=== PATIENT | female | born 1980 | race Caucasian/White ===

== ENCOUNTER 2022-01-23 10:32 | Outpatient (CLI) | payer OTHER, SELFPAY ==
[2022-01-23 11:55] LABS: Thyroid Stimulating Hormone 0.906 uIU/mL (0.465-4.680)
[2022-02-21 15:09] LABS: Gliadin AB, IgG <1.0 U/mL (<15.0); Reticulin IgA Negative (Negative); TTG IGA AB <1.0 U/mL (<15.0)
== END 2022-01-23 10:33 | disposition home or self-care (01) ==
LOC: ANHLAB 10:36
PROVIDERS: PCP Nurse Practitioner; Visit Provider Nurse Practitioner Family
DX: R19.7 Diarrhea, unspecified (principal)
CPT/HCPCS: 36415; 83516; 84443; 86255

== ENCOUNTER 2022-01-24 13:22 | Outpatient (CLI) | payer OTHER, SELFPAY ==
[2022-01-24 17:33] LABS: Toxigenic C. Diff NEGATIVE (NEGATIVE)
[2022-02-02 12:10] LABS: Calprotectin, Stool 6 mcg/g
== END 2022-01-24 13:23 | disposition home or self-care (01) ==
LOC: ANHLAB 13:24
PROVIDERS: PCP Nurse Practitioner; Visit Provider Nurse Practitioner Family
DX: R19.7 Diarrhea, unspecified (principal)
CPT/HCPCS: 83993; 87045; 87177; 87209; 87427; 87493

== ENCOUNTER 2022-02-16 07:04 | Emergency (ER) | payer OTHER, SELFPAY ==
--- NOTE | ~2022-02-16 | XR_ITS ---
EXAMINATION: XR ankle LT min 3V DATE: 02/16/2022 07:54 INDICATION: Left ankle deformity post fall TECHNIQUE: Anteroposterior, mortise and lateral views of the left ankle were obtained. COMPARISON: None. FINDINGS: Fiberglas splinting material about the left ankle. Transverse fracture across the medial malleolus wi th 5 mm lateral displacement and minimal lateral angulation. Oblique fracture of the lateral malleolu s with medial fracture plane exiting at the level of the tibiotalar joint line for degree of lateral displacement and mild angulation. 6 mm posterior and cephalad displacement of a coronally oriented fr acture extending across the posterior malleolus involving a minimal portion of the articular surface of the tibial plafond. The talar dome posteriorly and laterally subluxed along with the 3 malleolar f ragments relative to the tibial plafond with widening of the anterior and lateral aspects of the lindsey lla joint space. Normal alignment and no fractures in the visualized left foot. Bone islands in the d istal tibia. IMPRESSION: 1. Trimalleolar fracture of the left ankle with residual mild lateral and posterior displacement and angulation post splinting. Reviewed, dictated and finalized at location A. IMPRESSION: 1. Trimalleolar fracture of the left ankle with residual mild lateral and poste rior displacement and angulation post splinting.
[2022-02-16] MEDS: KETOROLAC 30 MG/ML VIAL (*BKC) IV PUSH (07:14)
[2022-02-16] MEDS: MORPHINE SULFATE (*CRX) 4 MG/ML INJ IV PUSH (07:15)
--- NOTE | 2022-02-16 07:19 | ED.LOWEXIN ---
HPI - Extremity Injury (Lower) General Chief Complaint: Extremity Injury, Lower Stated Complaint: Fall, left ankle injury Time Seen by Provider: 02/16/22 07:09 History of Present Illness HPI Narrative: 41-year-old female presents emergency room with an obvious deformity of the left ankle. She had to point out some stairs this morning when she tripped and missed the last step. Has no other injury other than to the left ankle. Is obviously fractured and rotated. Patient is got significant pain associated with this. She does have a history of a prior fracture to her right ankle when she was a teenager. She did not hit her head and had no loss of consciousness. Related Data Home Medications Medication Instructions Recorded Confirmed escitalopram oxalate 20 mg tablet 20 mg PO DAILY 01/09/22 01/23/22 lactobacillus combination no.4 3 3,000 mmu cells PO DAILY 01/09/22 01/23/22 billion cell capsule (Probiotic) Allergies Allergy/AdvReac Type Severity Reaction Status Date / Time No Known Allergies Allergy Verified 01/23/22 09:14 Review of Systems Review of Systems: CONSTITUTIONAL: Denies fever, chills, or sweats. EYES: Denies visual changes, redness, or discharge. ENT: Denies rhinorrhea, congestion, sore throat, or otalgia. CARDIOVASCULAR: Denies chest pain, palpitations, or edema. RESPIRATORY: Denies cough or dyspnea. GASTROINTESTINAL: Denies abdominal pain, nausea, vomiting, or diarrhea. GENITOURINARY: Denies dysuria or hematuria. SKIN: Denies rash or itching. MUSCULOSKELETAL: Obvious deformity to the left ankle with associated pain NEUROLOGIC: Denies headache, numbness, or weakness. PSYCHIATRIC: Denies anxiety or depression. [facility] Past Medical History Medical History Diarrhea Tobacco use Family History Family History Mother Hypertension Depression Father Hypertension Social History Social History Smoking packs per day: 1 Smoking cigarettes per day: 20.0 Years smoked: 25 Smoking pack-years: 25.00 Smoking status: Current every day smoker Tobacco type: cigarettes Second hand tobacco smoke exposure: No Alcohol intake: current Drinks per week: 14 Substance use: current Substance use type: marijuana Gender identity (if verbalized by the patient): Female Spiritual care concerns: No Agree to blood products: Yes Exam Narrative: APPEARANCE: Well appearing, no pain or distress, well-nourished. Head normocephalic and atraumatic. EYES: PERRLA/EOMI, conjunctivae very clear. NOSE: Normal with no drainage EARS:TMS clear Conchita Samuel, with good light reflex. THROAT: Pharynx clear, no exudate. NECK: Supple. No adenopathy, no masses. RESPIRATORY: Airway patent, respirations nonlabored. Clear to auscultation bilaterally, no rales, rhonchi, wheezing. CARDIOVASCULAR: Regular rate and rhythm without murmurs, rubs, or gallops. ABDOMINAL: Soft, nontender, nondistended, no hepatosplenomegaly Musculoskeletal: Obviously deformity to the left ankle. He is noted to be externally rotated. She is able to move her toes. Good capillary fill all the way down to the ends of all of her digits. Sensation is intact. NEURO: Alert. Cranial nerves II through XII intact. Normal gait. Good coordination. Nonfocal examination. SKIN:: Warm, dry. Normal Color PSYCHIATRIC: Normal affect/mood, normal interaction Procedures Orthopedic Fracture Reduction Fracture #1: Additional Comments: Patient has an obvious fracture dislocation of left ankle. The left foot is noted to be pointed laterally. Patient has good distal pulses. Able to move all of her digits. Capillary refill is brisk. Patient was given morphine and Toradol IV. Able to put traction on the ankle and reduce the fracture and dislocation with no difficulty. I maintain traction and held the foot in place while a splint was applied. Patient to
[2022-02-16] MEDS: MORPHINE SULFATE (*CRX) 2 MG/ML INJ (07:27)
[2022-02-16 09:16] VITALS: BP 129/71; PULSE 64; RESP 18; O2SAT 100
== END 2022-02-16 09:00 | disposition home or self-care (01) ==
PROVIDERS: Emergency Provider Emergency Medicine; PCP Family Medicine Adolescent Medicine
DX: S82.852A Displaced trimalleolar fracture of left lower leg, initial encounter for closed fracture (principal); F17.210 Nicotine dependence, cigarettes, uncomplicated; W10.9XXA Fall (on) (from) unspecified stairs and steps, initial encounter
CPT/HCPCS: 27818; 73610; 96374; 96375; 99285; J1885; J2270

== ENCOUNTER 2022-02-21 01:04 | Day surgery (SDC) | payer OTHER, SELFPAY ==
[2022-02-18 17:03] VITALS: BMI 29.2
--- NOTE | 2022-02-18 17:28 | SUR.PREOP ---
Report to the Outpatient Waiting Room, entrance under the green pavilion located off [facility], at time 1030 on date 02/21/2022. OR Time: 1230. - You and your visitor will be asked a series of questions to screen for COVID 19 for your protection. - Only one visitor is allowed at this time. - The patient visitor is requested to leave or wait in car when not with patient. - A mask is required within the hospital. Patients may have clear liquids (water, carbonated beverages, clear teas, apple juice) until 3 hours (0930) prior to surgery with a maximum of 20 ounces. - No food from midnight until time of surgery - Infants may have breast milk until 4 hours before surgery, infant formula 6 hours prior to surgery. - Children will be allowed to drink immediately following surgery. If applicable, please bring a bottle or sippy cup to assist with drinking. Juice, water, soda, and popsicles are readily available. For infants on formula, please bring formula the day of surgery. Pacifiers are allowed. Take the following medications with a SIP of water the morning of surgery: [place], Lexapro Medications to discontinue per physician NSAID's- Ibuprofen/Aleve Date to take last dose 02/18/2022 Please no make-up, nail french, hairspray, perfume, deodorant, or body powder the day of surgery. No jewelry (including any body piercings) or valuables the day of surgery, leave them at home. Please take a shower or bath the night before, or the morning of, surgery with an antibacterial soap. Wear comfortable, loose fitting clothing. Children are encouraged to wear pajamas. - Jewelry must be removed prior to entering the operating room. Rings and piercings that are not removed may be cut off. - The hospital will not accept responsibility for valuables. - Please leave all valuables, including medications, at home the day of surgery. If you are going home after surgery, a licensed minibus driver must drive you home. - NO public transportation without another adult. - We recommend that an adult stay with you for 24 hours following discharge. - We also recommend that you do not drive, make important decision, drink alcoholic beverages, or take any drugs that were not prescribed by your health care provider for at least 24 hours after your discharge time. For Pediatric surgeries, we recommend two adults accompany the child home (only one inside the building at this time). Follow any additional instructions given to you from your surgeon. If you or anyone in your household have experienced Covid symptoms in the past week, please notify your surgeon or the nurse liaison at the phone number below for possible testing. Telephone instructions given to ____patient and asked if any additional questions and then verbalized understanding. Patient advised to call surgeon office or pre surgery nurse liaison [phone] if any additional questions.
--- NOTE | 2022-02-20 16:04 | P.PNAN_ITS ---
Anes - Initial Pre Proc Eval Procedure: Operation Date: 02/21/22 12:30 Proposed Procedures p Open Reduction Internal Fixation Left Trimalleolar Ankle Fracture - Todd Mc MD Date/Time: 02/20/22 16:04 Surgeon: Todd Mc MD Pre Op Diagnosis: left trimalleolar ankle fracture Patient Data Age: 41 Gender: F Height: 1.83 m Weight: 98 kg Allergies Allergy/AdvReac Type Severity Reaction Status Date / Time No Known Allergies Allergy Verified 02/21/22 10:56 Home Medications Medication Instructions Recorded Confirmed Type dicyclomine 10 mg capsule 10 mg PO TID #90 caps 01/09/22 02/18/22 Rx escitalopram oxalate 20 mg tablet 20 mg PO DAILY 01/09/22 02/21/22 History lactobacillus combination no.4 3 3,000 mmu cells PO DAILY 01/09/22 02/18/22 History billion cell capsule (Probiotic) hydrocodone 5 mg-acetaminophen 300 1 tablet PO Q8H PRN pain #20 tabs 02/16/22 02/21/22 Rx mg tablet Patient hx anesthesia problems: none Family hx anesthesia problems: none Results Review: All pre-operative results and documents have been reviewed as part of the pre- operative evaluation. [facility] Past Medical History Medical History Anxiety Depression Diarrhea Tobacco use Family History Family History Mother Hypertension Depression Father Hypertension Social History Social History Smoking packs per day: 1 Smoking cigarettes per day: 20.0 Years smoked: 25 Smoking pack-years: 25.00 Smoking status: Current every day smoker Tobacco type: cigarettes Second hand tobacco smoke exposure: No Alcohol intake: current Drinks per week: 13 Substance use: current Substance use type: marijuana Last use: 02/18/2022 Living arrangements: alone Gender identity (if verbalized by the patient): Female Spiritual care concerns: No Agree to blood products: Yes Anes - Eval Final PreProcedure Day of Procedure 02/20/22 16:04 Patient weight: overweight Heart: regular rate and rhythm Lungs: clear to auscultation Airway: Mallampati scale class II Neurological: alert and oriented Last oral intake: >/= 8 hours ASA classification: III Emergent: no Anesthetic plan: proceed Anesthesia type and monitoring: general LMA and standard monitoring Results Review: All pre-operative results and documents have been reviewed as part of the pre- operative evaluation. Informed Consent: The patient's anesthetic plan and its attendant risks and benefits were discussed with the patient/family/POA. Questions were solicited and answers provided to the satisfaction of the patient/family/POA.
[2022-02-21] VITALS (10 sets, daily range): BP systolic 111–138; BP diastolic 63–85; PULSE 62–82; RESP 12–17; TEMP 36.5–36.6; O2SAT 94–99; BMI 29.2
--- NOTE | ~2022-02-21 | XR_ITS ---
EXAMINATION: XR surgery orthopedic DATE: 02/21/2022 14:33 INDICATION: ORIF left ankle fracture TECHNIQUE: 3 fluoroscopic views of the left ankle and a fluoroscopic image of the right ankle for com pedro luison were obtained during procedure performed by Dr. Mc. Radiologist was not present for t he imaging or procedure. The amount of fluoroscopy time used during this procedure was 1.0 minutes. COMPARISON: 02/16/2022 FINDINGS: Trimalleolar fracture at the left ankle with interval reduction and internal fixation. The medial mal leolar fractures fixed with a pair of cannulated lag screws. The lateral malleolar fracture is fixed with a pair of interfragmentary screws and lateral plate and screws. Both these fractures are in esse ntially anatomic alignment. A posterior malleolar fracture remains unfixed with residual mild proxima l migration resulting in 2 mm step-off along the articular surface at the posterior most aspect of th e tibial plafond. There are couple small bone fragments projecting over the anterior recess of the sharon int space. Right ankle appears unremarkable on the frontal projection. IMPRESSION: 1. Left ankle trimalleolar fracture post open reduction and internal fixation of the medial and later al malleolar fractures which are now in near-anatomic alignment. Reviewed, dictated and finalized at location B. IMPRESSION: 1. Left ankle trimalleolar fracture post open reduction and internal fixation o f the medial and lateral malleolar fractures which are now in near-anatomic ali gnment.
--- NOTE | 2022-02-21 10:47 | ECG_ITS ---
Measurements Intervals [place] Rate: 58 P: 62 IA: 156 QRS: 61 QRSD: 97 T: 15 QT: 430 QTc: 425 Interpretive Statements SINUS BRADYCARDIA ATRIAL PREMATURE COMPLEX INCOMPLETE RIGHT BUNDLE BRANCH BLOCK BASELINE ARTIFACT- V6 BORDERLINE ECG Electronically Signed On 02-21-2022 18:36:26 CDT by Maximus Jasso D.O.
[2022-02-21] MEDS: LACTATED RINGERS 1,000 ML 30 ML IV CONT (11:21)
[2022-02-21] MEDS: KETOROLAC 15 MG/ML VIAL (*BKC) IV PUSH (11:22)
[2022-02-21] MEDS: ACETAMINOPHEN 500 MG TABLET 1000 MG PO (11:22)
--- NOTE | 2022-02-21 11:25 | SUR.PREOP ---
DISCUSSED MICAH AND MORRO, PT STATES NO. TOO MUCH PAIN WHEN I MOVE IT
--- NOTE | 2022-02-21 12:18 | SUR.PREOP ---
SPOKE WITH DR BARON, NOTIFIED OF PT HAVING TOO MUCH PAIN WITH MOVEMENT, AND SHE REFUSED SPLINT REMOVAL.
--- NOTE | 2022-02-21 12:28 | WPDHPUPDATE1 ---
History and Physical Update Update Date/Time: 02/21/22 12:28 History and Physical has been reviewed, including an updated exam of the patient. There are NO changes in the patient's condition. Risks, benefits, and alternatives have been discussed and questions answered. Patient agrees to proceed with procedure.
--- NOTE | 2022-02-21 12:32 | SUR.PREOP ---
1130; [facility], TOOK PT'S CELL PHONE WITH HIM. STATES HE DOESN'T NEED TO BE CALLED WHEN PT GOES TO OR, JUST AFTER SURGERY
[2022-02-21] MEDS: ceFAZolin 2 GM/D5W 50 ML 2 GM/50 ML BAG IVPB (12:38)
[2022-02-21] MEDS: BUPIVACAINE/EPINEPHRINE 0.25% 10 ML VIAL 20 ML INFILTRATE (13:16)
[2022-02-21] MEDS: fentaNYL CITRATE INJ (*CRX) 100 MCG/2 ML VIAL 25 MCG IV PUSH ×4 (15:09→15:27)
[2022-02-21] MEDS: oxyCODONE HCL (*CRX) 5 MG TAB IR PO (15:52)
--- NOTE | 2022-02-21 17:12 | W.PM.PROC2 ---
Procedure Note - Detailed Date of Procedure 02/21/22 Pre-op Diagnosis left trimalleolar ankle fracture Post-op Diagnosis Same Procedure Performed ORIF left trimalleolar ankle fracture, with internal fixation of the medial and lateral malleoli. Surgeon Todd Mc MD Anesthesia General Findings The posterior malleolar fragment was less than 15% and partially reduced appropriately. Bone quality was good. Anatomic reduction obtained. Significant comminution of the distal fibula with an anterior fragment. The anatomic contour plate with locking screws as well as 2 anterior to posterior lag screws provided excellent fixation. The ankle syndesmosis was entirely stable. Description of Procedure A general anesthetic was administered. The limb was prepped and draped in the usual sterile fashion with a well-padded tourniquet high on the thigh. A bump was placed under the hip. The limb was exsanguinated and the tourniquet inflated to 300 millimeters of mercury during the procedure. A longitudinal incision was created at the distal fibula. Careful dissection was carried down to bone. Perineal nerve branches were protected. The fracture was carefully exposed. Callus and debris was irrigated from the wound. The fracture was brought out to length. Reduction was accomplished with the reduction forceps. Two lag screws were placed from anterior to posterior. The more distal was 2.7 mm due to its proximity to the comminuted fragment anteriorly. The lateral anatomic plate was placed wear and contoured the bone most closely. Fixation was performed with a combination of cortical and cancellous screws. All distal screws were locking except the most distal screw which required proximal angulation. The other locking screw was the most distal shaft screw. Fluoroscopy was used throughout the procedure to confirm anatomic reduction and appropriate placement of the implants. The medial malleolus was exposed with a longitudinal incision. The fracture was cleared of debris and irrigated. Anatomic reduction was obtained with the reduction tool. Biplanar fluoroscopy was used to assess the fracture reduction and guide placement of the K-wire. Two K-wires were placed parallel across the fracture site. The screw lengths were measured and drilled distally only. The long, partially threaded screws were placed, and the K-wires removed. The tourniquet was released. Meticulous hemostasis was obtained. Wound was closed in layers with 2-0 Vicryl suture 3-0 Monocryl suture and 3-0 nylon. A sterile splint with padding was applied. The patient was extubated and brought to the recovery room in stable condition. There were no complications. Implants Arthrex 5 hole distal fibular anatomic plate. 4.0 mm cannulated screws medially. Estimated Blood Loss -5.0 Drains No Packing No Pathology None sent Complications No immediate complications Condition Stable Disposition PACU [facility] Billing Surgery - Charge Forward: Surgery Billing
== END 2022-02-21 16:52 | disposition home or self-care (01) ==
PROVIDERS: PCP Family Medicine Adolescent Medicine; Visit Provider Orthopaedic Surgery
PROC: (CPT 27822; principal; 2022-02-21 12:30)
DX: S82.852A Displaced trimalleolar fracture of left lower leg, initial encounter for closed fracture (principal); W10.9XXA Fall (on) (from) unspecified stairs and steps, initial encounter; F41.9 Anxiety disorder, unspecified; F32.A Depression, unspecified; F17.210 Nicotine dependence, cigarettes, uncomplicated; F12.90 Cannabis use, unspecified, uncomplicated
CPT/HCPCS: 27822; 93005; 99199; A9270; C1713; C1769; J0690; J1100; J1170; J1885; J2250; J2405; J2704; J3010; J7120

== ENCOUNTER 2022-06-16 07:40 | Day surgery (SDC) | payer OTHER, SELFPAY ==
[2022-05-28 15:13] VITALS: BMI 26.3
[2022-06-16 08:03] VITALS: BP 125/74; PULSE 60; RESP 12; TEMP 36.8; O2SAT 100; BMI 26.0
--- NOTE | 2022-06-16 08:17 | P.PNAN_ITS ---
Anes - Initial Pre Proc Eval Procedure: Operation Date: 06/16/22 09:15 Proposed Procedures p Diagnostic Colonoscopy - Adrian Rubio MD Date/Time: 06/16/22 08:17 Surgeon: Adrian Rubio MD Pre Op Diagnosis: Diarrhea Patient Data Age: 41 Gender: F Height: 1.83 m Weight: 87.05 kg Last Vital Signs Temp 36.8 C 06/16/22 08:03 Pulse 60 06/16/22 08:03 Resp 12 06/16/22 08:03 BP 125/74 06/16/22 08:03 Pulse Ox 100 06/16/22 08:03 Allergies Allergy/AdvReac Type Severity Reaction Status Date / Time No Known Allergies Allergy Verified 06/16/22 08:02 Home Medications Medication Instructions Recorded Confirmed Type escitalopram oxalate 20 mg tablet 20 mg PO DAILY 01/09/22 06/16/22 History lactobacillus combination no.4 3 3,000 mmu cells PO DAILY 01/09/22 06/16/22 History billion cell capsule (Probiotic) sodium,potassium,mag sulfates 17.5 See Rx Instructions PO .COMPLEX 04/24/22 05/05/22 Rx gram-3.13 gram-1.6 gram oral soln #354 mL (Suprep Bowel Prep Kit) dicyclomine 10 mg capsule 10 mg PO TID #90 caps 04/29/22 06/16/22 Rx Patient hx anesthesia problems: none Family hx anesthesia problems: none Results Review: All pre-operative results and documents have been reviewed as part of the pre- operative evaluation. [facility] Past Medical History Medical History Anxiety Depression Diarrhea Tobacco use Surgical History Surgical History (Updated 06/16/22 @ 08:18 by Hal Harley MD) History of ankle surgery Family History Family History Mother Hypertension Depression Father Hypertension Social History Social History Smoking packs per day: 1 Smoking cigarettes per day: 20.0 Years smoked: 25 Smoking pack-years: 25.00 Smoking status: Current every day smoker Tobacco type: cigarettes Second hand tobacco smoke exposure: No Alcohol intake: unknown Drinks per week: 13 Substance use: current Substance use type: does not use Last use: 02/18/2022 Living arrangements: alone Gender identity (if verbalized by the patient): Female Spiritual care concerns: No Agree to blood products: Yes Anes - Eval Final PreProcedure Day of Procedure 06/16/22 08:17 Patient weight: overweight Heart: regular rate and rhythm Lungs: clear to auscultation Airway: Mallampati scale class II Neurological: alert and oriented Last oral intake: >/= 8 hours ASA classification: III Emergent: no Anesthetic plan: proceed Anesthesia type and monitoring: general GIVS and standard monitoring Results Review: All pre-operative results and documents have been reviewed as part of the pre- operative evaluation. Informed Consent: The patient's anesthetic plan and its attendant risks and benefits were discussed with the patient/family/POA. Questions were solicited and answers provided to the satisfaction of the patient/family/POA.
[2022-06-16] MEDS: LACTATED RINGERS 1,000 ML 150 ML IV CONT (08:18)
--- NOTE | 2022-06-16 08:53 | PM.HPGS ---
History of Present Illness History of Present Illness Consent: Risks, benefits, and alternatives have been discussed and questions answered. Patient agrees to proceed with procedure. Chief complaint: Diarrhea Narrative: Lindsay Gardner is a 41 year old female Presents for colonoscopy. Patient reports having had diarrhea for many years. She describes this as watery and frequent throughout the day. It rarely occurs at night. She has had no bleeding or weight loss. Family history noncontributory. Patient reports she recently fractured her ankle and has required pain medications and during this interval the diarrhea has lessened become more normalized. Patient presents today for colonoscopy to assess for diarrhea. She denies any prior abdominal surgery. There is no family history of GI diseases. Review of Systems Review of Systems: Review of systems noncontributory. PMF Past Medical History Medical History Anxiety Depression Diarrhea Tobacco use Surgical History Surgical History (Updated 06/16/22 @ 08:18 by Hal Harley MD) History of ankle surgery Family History Family History Mother Hypertension Depression Father Hypertension Social History Social History Smoking packs per day: 1 Smoking cigarettes per day: 20.0 Years smoked: 25 Smoking pack-years: 25.00 Smoking status: Current every day smoker Tobacco type: cigarettes Second hand tobacco smoke exposure: No Alcohol intake: unknown Drinks per week: 13 Substance use: current Substance use type: does not use Last use: 02/18/2022 Living arrangements: alone Gender identity (if verbalized by the patient): Female Spiritual care concerns: No Agree to blood products: Yes Meds Home Medications and Allergies Home Medications Medication Instructions Recorded Confirmed Type escitalopram oxalate 20 mg tablet 20 mg PO DAILY 01/09/22 06/16/22 History lactobacillus combination no.4 3 3,000 mmu cells PO DAILY 01/09/22 06/16/22 History billion cell capsule (Probiotic) sodium,potassium,mag sulfates 17.5 See Rx Instructions PO .COMPLEX 04/24/22 05/05/22 Rx gram-3.13 gram-1.6 gram oral soln #354 mL (Suprep Bowel Prep Kit) dicyclomine 10 mg capsule 10 mg PO TID #90 caps 04/29/22 06/16/22 Rx Allergies Allergy/AdvReac Type Severity Reaction Status Date / Time No Known Allergies Allergy Verified 06/16/22 08:02 Vital Signs Vital Signs - 24 hr 06/16/22 08:03 Temperature 98.2 F Pulse Rate 60 Respiratory Rate 12 Blood Pressure 125/74 Pulse Oximetry 100 Exam Narrative: Physical exam reveals patient to be alert. Vital signs stable. HEENT exam is unremarkable. Patient is anicteric. Lungs are clear to auscultation and percussion. Heart is without murmur or extra sounds. Abdomen bowel sounds present soft nontender with no organomegaly. Digital external rectal exam is normal. Assessment and Plan Assessment and plan (1) Diarrhea: Code(s): R19.7 - Diarrhea, unspecified Status: Acute Assessment and Plan: Patient which the ongoing diarrhea which has been present for several years. Appears to have improved at this is been attributed to pain medications. Agree with trial of fiber supplementation. Colonoscopy has been recommended to exclude organic disease further recommendations may be given after endoscopy.
[2022-06-16 09:15] VITALS: BP 116/69; PULSE 55; RESP 16; O2SAT 100
[2022-06-16 09:25] VITALS: BP 121/63; PULSE 51; RESP 20; O2SAT 98
--- NOTE | 2022-06-16 09:29 | WPDANESPN ---
Anes - Prog Note Post-Op Date/Time: 06/16/22 09:29 Cardiovascular status: normal Respiratory status: normal Airway patency: baseline Mental status: baseline Post-Op hydration status: normal Vital Signs: Last Vital Signs Temp 36.8 C 06/16/22 08:03 Pulse 60 06/16/22 08:03 Resp 12 06/16/22 08:03 BP 125/74 06/16/22 08:03 Pulse Ox 100 06/16/22 08:03 Pain Score (VAS): 0/10 I/O: Intake & Output 06/15/22 06/16/22 06/16/22 23:59 07:59 15:59 Intake Total 400 Balance 400 Patient Feedback: Patient satisfied with anesthetic care.
[2022-06-16 09:35] VITALS: BP 118/56; PULSE 58; RESP 20; O2SAT 100
== END 2022-06-16 09:56 | disposition home or self-care (01) ==
PROVIDERS: PCP Physician Assistant; Visit Provider Internal Medicine Gastroenterology
PROC: 0DJD8ZZ Inspection of Lower Intestinal Tract, Via Natural or Artificial Opening Endoscopic (ICD-10-PCS; CPT 45378; principal; 2022-06-16 09:15)
DX: R19.7 Diarrhea, unspecified (principal)
CPT/HCPCS: 45380

== ENCOUNTER 2022-06-16 08:00 | Outpatient (NON) | payer OTHER, SELFPAY | END 2022-06-16 08:01 | disposition home or self-care (01) | LOC: ANHLAB 06-17 07:48 | PROVIDERS: PCP Physician Assistant; Visit Provider Internal Medicine Gastroenterology | DX: R19.7 Diarrhea, unspecified (principal) | CPT/HCPCS: 88305 ==

== ENCOUNTER 2022-06-27 08:19 | Outpatient (CLI) | payer OTHER, SELFPAY ==
--- NOTE | ~2022-06-27 | XR_ITS ---
EXAMINATION: XR small bowel follow through DATE: 06/27/2022 09:36 INDICATION: Diarrhea, unspecified. TECHNIQUE: Oral contrast was administered, and a time course of radiographs of the abdomen was obtain ed. Fluoroscopy of the small bowel was performed. Fluoroscopy exposure time was 0.1 minutes. The tota l number of images was 8. COMPARISON: None. FINDINGS: There are no dilated loops of bowel. There is no mass or stricture. The terminal ileum is normal. Tra nsit time from the stomach to proximal colon was approximately 30 minutes. IMPRESSION: 1. Normal small bowel series. Reviewed, dictated and finalized at location A. INFUSION
== END 2022-06-27 08:20 | disposition home or self-care (01) ==
PROVIDERS: PCP Physician Assistant; Visit Provider Internal Medicine Gastroenterology
DX: R19.7 Diarrhea, unspecified (principal)
CPT/HCPCS: 74250